=== PATIENT | male | born 1975 | race Two or more races ===

== ENCOUNTER → 2022-01-26 | Emergency (ER) | payer OTHER ==
[~2022-01-26] VITALS: Ht 180.3 cm; Wt 81.6 kg
[~2022-01-26] MED LIST: CEPH500C2 PO; IBUP-1955 PO; KETOROLAC TROMETHAMINE 15 MG/ML VIAL ONE; KETOROLAC TROMETHAMINE INJ 30 MG/ML VIAL IM ONE
--- NOTE | 2022-01-26 08:07 | NUR ---
[id number] C/O BLE CRAMPING AND PAIN 8/10 X1WK. VITALS ARE WITHIN NORMAL LIMITS. NO RESP DISTRESS.
[2022-01-26 10:31] VITALS: BP 108/67
--- NOTE | 2022-01-26 10:34 | NUR ---
Patient provided with bus pass. Patient discharged to home in stable condition. Written and verbal after care instructions given. Patient verbalizes understanding of instruction.
== END | disposition home or self-care (01) ==
LOC: ER 08:04
DX: L03.116 Cellulitis of left lower limb (principal); L03.115 Cellulitis of right lower limb; R60.9 Edema, unspecified; I10 Essential (primary) hypertension; Z59.00 Homelessness unspecified; Z79.899 Other long term (current) drug therapy
CPT/HCPCS: 93970; 96372; 99284; J1885

== ENCOUNTER 2022-02-04 19:51 | Emergency (ER) | payer OTHER ==
[~2022-02-04] VITALS: Ht 180.3 cm; Wt 81.6 kg
[~2022-02-04 19:51] MED LIST changes: -KETOROLAC TROMETHAMINE 15 MG/ML VIAL ONE; -KETOROLAC TROMETHAMINE INJ 30 MG/ML VIAL IM ONE
--- NOTE | 2022-02-04 22:31 | NUR ---
COVID ANTIGEN SWAB COLLECTED AND SENT TO LAB
[2022-02-04] MEDS ORDERED: OLANZAPINE 5 MG TABLET ONE (22:34)
[2022-02-04 22:47] LABS: BASOPHILS % (AUTO) 1.1 % (0.0-2.0); HEMATOCRIT 43 % (39-51); HEMOGLOBIN 14.6 g/dL (13.5-17.5); LYMPHOCYTES % (AUTO) 34.5 % (20.0-44.0); MEAN CORPUSCULAR HGB CONC 34 g/dl (31.0-36.0); MEAN CORPUSCULAR VOLUME 94 fL (80-96); NEUTROPHILS % (AUTO) 53.4 % (43.0-81.0); PLATELET COUNT (AUTO) 266 K/uL (150-450); RED BLOOD CELL COUNT(AUTO) 4.65 MIL/uL (4.5-6.0); WHITE BLOOD COUNT (AUTO) 12.7 K/uL (4.3-11.0)
[2022-02-04 22:48] LABS: BASOPHILS # (AUTO) 0.1 K/uL (0.0-0.2); LYMPHOCYTES # (AUTO) 4.4 K/uL (0.8-4.8); MONOCYTES # (AUTO) 1.3 K/uL (0.1-1.30); NEUTROPHILS # (AUTO) 6.8 K/uL (1.8-8.9)
[2022-02-04] MEDS ORDERED: OLANZAPINE 5 MG TABLET PO ONE (23:00)
[2022-02-04 23:11] LABS: ALANINE AMINOTRANSFERASE 88 U/L (12-78); ALBUMIN 4.1 g/dL (3.4-5.0); ALKALINE PHOSPHATASE 73 U/L (46-116); ASPARTATE AMINOTRANSFERASE 45 U/L (15-37); BILIRUBIN,DIRECT 0.2 mg/dL (0.0-0.2); BILIRUBIN,TOTAL 1.1 mg/dL (0.2-1.0); CALCIUM, SERUM 8.7 mg/dL (8.5-10.1); CARBON DIOXIDE 29 mmol/L (21-32); CHLORIDE 103 mmol/L (98-107); GLUCOSE 96 mg/dL (74-106); POTASSIUM 3.3 mmol/L (3.5-5.1); SODIUM SERUM 141 mmol/L (136-145); TOTAL PROTEIN, SERUM 7.9 g/dL (6.4-8.2); UREA NITROGEN, BLOOD 15 mg/dL (7-18)
[2022-02-04 23:15] LABS: ACETAMINOPHEN < 2 ug/ml (10-30); ALCOHOL, BLOOD < 3 mg/dL (0-0)
--- NOTE | 2022-02-04 23:34 | NUR ---
patient no longer wants to go voluntarily to a psych facility. denies s/i h/i. is discharged in stable condition.
[2022-02-04 23:36] VITALS: BP 123/70
== END 2022-02-04 23:36 | disposition home or self-care (01) ==
LOC: ER 19:55
DX: F29 Unspecified psychosis not due to a substance or known physiological condition (principal); Z59.01 Sheltered homelessness; F19.90 Other psychoactive substance use, unspecified, uncomplicated
CPT/HCPCS: 36415; 80048; 80076; 80143; 80320; 85025; 87426; 99283; C9803; G0480

== ENCOUNTER 2022-02-05 12:02 | Emergency (ER) | payer OTHER ==
[~2022-02-05] VITALS: Ht 180.3 cm; Wt 81.6 kg
--- NOTE | 2022-02-05 12:08 | NUR ---
BIBS C/O SI, -HI."CAN'T TELL MY PLAN OUT LOUD". ALSO WITH AUDITORY HALLUCINATIONS "HORRIBLE THINGS". ALSO C/O GEN BODY ACHES X3DAYS & AMALIA FOOT BLISTERS x FEW WEEKS. PATIENT REQUESTS VOLUNTARY ADMISSION TO PSYCH FACILITY. TO ER BED 18, CHANGED TO HOSP GOWN, BELONGINGS PLACED IN PATIENT LOCKER. CALLED SECURITY FOR WANDING. AWAITING MD CARLSON
[2022-02-05 12:42] LABS: BASOPHILS # (AUTO) 0.1 K/uL (0.0-0.2); BASOPHILS % (AUTO) 1.2 % (0.0-2.0); EOSINOPHILS % (AUTO) 2.6 % (0.0-6.0); HEMATOCRIT 48 % (39-51); HEMOGLOBIN 16.2 g/dL (13.5-17.5); LYMPHOCYTES # (AUTO) 3.4 K/uL (0.8-4.8); MEAN CORPUSCULAR HGB CONC 34 g/dl (31.0-36.0); MEAN CORPUSCULAR VOLUME 93 fL (80-96); MONOCYTES # (AUTO) 0.7 K/uL (0.1-1.30); MONOCYTES % (AUTO) 8.1 % (2.0-12.0); NEUTROPHILS # (AUTO) 3.8 K/uL (1.8-8.9); NEUTROPHILS % (AUTO) 46.1 % (43.0-81.0); PLATELET COUNT (AUTO) 266 K/uL (150-450); RED BLOOD CELL COUNT(AUTO) 5.09 MIL/uL (4.5-6.0); WHITE BLOOD COUNT (AUTO) 8.2 K/uL (4.3-11.0)
[2022-02-05 12:59] LABS: CALCIUM, SERUM 9.1 mg/dL (8.5-10.1); CARBON DIOXIDE 31 mmol/L (21-32); CHLORIDE 102 mmol/L (98-107); CREATININE 0.8 mg/dL (0.6-1.3); GLUCOSE 93 mg/dL (74-106); POTASSIUM 3.7 mmol/L (3.5-5.1); SODIUM SERUM 140 mmol/L (136-145); UREA NITROGEN, BLOOD 14 mg/dL (7-18)
--- NOTE | 2022-02-05 12:59 | NUR ---
FAXED CLINICALS TO [facility]
[2022-02-05 13:06] LABS: ALANINE AMINOTRANSFERASE 103 U/L (12-78); ALBUMIN 4.5 g/dL (3.4-5.0); ALCOHOL, BLOOD < 3 mg/dL (0-0); ALKALINE PHOSPHATASE 98 U/L (46-116); ASPARTATE AMINOTRANSFERASE 56 U/L (15-37); BILIRUBIN,DIRECT 0.2 mg/dL (0.0-0.2); BILIRUBIN,TOTAL 1.4 mg/dL (0.2-1.0); TOTAL PROTEIN, SERUM 8.8 g/dL (6.4-8.2)
--- NOTE | 2022-02-05 13:24 | NUR ---
SS Note: Pt. Is a 46-year-old male who demonstrates adequate insight to the reason for hospitalization. Per pt., he presents to the ER for suicidal ideation. Pt. was oriented x3, alert, and cooperative. During interview, pt. was capable of following directions and appeared unkempt. Pt.'s speech was at a low rate and pt.'s mood was elevated. Pt. reported no hx of mental health, substance abuse, denies homicidal ideation. Pt. denies visual hallucinations, paranoia, or delusions. Pt. stated that he experiences auditory hallucinations, the voices are telling him to hurt himself. SW explored pt.'s living situation. Per pt., he resides at [facility] [place]. He has been staying there for almost 2 weeks. Pt. stated that he has suicidal ideation but does not have a plan to hurt himself. Pt. has been to a psych hospital before but does not remember the last time or name of the hospital. Pt. expressed that he wants voluntary psych admission to [facility]. Plan: [facility] will follow-up with [facility] regarding pt.'s packet.
--- NOTE | 2022-02-05 14:32 | NUR ---
Followed-up with [facility], awaiting for feedback.
--- NOTE | 2022-02-05 21:09 | NUR ---
PATIENT A, OX4. REPORTED FEELING WELL. DENIED SI/HI AND STATED HE WANTS TO LEAVE. MD MADE AWARE. Patient discharged to home in stable condition. Written and verbal after care instructions given. Patient verbalizes understanding of instruction.
[2022-02-05 23:12] VITALS: BP 127/84
== END 2022-02-05 23:13 | disposition home or self-care (01) ==
LOC: ER 12:15
DX: R45.851 Suicidal ideations (principal); F15.10 Other stimulant abuse, uncomplicated; F41.9 Anxiety disorder, unspecified; F32.A Depression, unspecified; F17.200 Nicotine dependence, unspecified, uncomplicated; Z79.899 Other long term (current) drug therapy
CPT/HCPCS: 36415; 80048-TC; 80076-TC; 85025-TC; G0480

== ENCOUNTER 2024-04-15 15:53 | Emergency (ER) | payer OTHER ==
[~2024-04-15] VITALS: Ht 170.2 cm; Wt 73.5 kg
[2024-04-15 17:30] VITALS: BP 117/68; TEMP 99.1; O2SAT 100
== END 2024-04-15 17:48 | disposition left against medical advice (07) ==
LOC: ER 15:58
DX: R10.9 Unspecified abdominal pain (principal); Z53.21 Procedure and treatment not carried out due to patient leaving prior to being seen by health care provider

== ENCOUNTER 2024-10-25 01:44 | Emergency (ER) | payer OTHER ==
[~2024-10-25] VITALS: Ht 175.3 cm; Wt 79.4 kg
[2024-10-25 02:07] LABS: BASOPHILS # (AUTO) 0.1 K/uL (0.0-0.2); BASOPHILS % (AUTO) 1.1 % (0.0-2.0); EOSINOPHILS # (AUTO) 0.2 K/uL (0.0-0.7); HEMATOCRIT 37 % (39-51); HEMOGLOBIN 12.9 g/dL (13.5-17.5); LYMPHOCYTES # (AUTO) 3.1 K/uL (0.8-4.8); LYMPHOCYTES % (AUTO) 39.4 % (20.0-44.0); MEAN CORPUSCULAR HEMOGLOBIN 31 PG (26.0-33.0); MEAN CORPUSCULAR HGB CONC 35 g/dl (31.0-36.0); MEAN CORPUSCULAR VOLUME 89 fL (80-96); MONOCYTES # (AUTO) 0.4 K/uL (0.1-1.30); MONOCYTES % (AUTO) 4.8 % (2.0-12.0); NEUTROPHILS # (AUTO) 4.2 K/uL (1.8-8.9); NEUTROPHILS % (AUTO) 52.7 % (43.0-81.0); PLATELET COUNT (AUTO) 237 K/uL (150-450); RED BLOOD CELL COUNT(AUTO) 4.16 MIL/uL (4.5-6.0); RED CELL DISTRIBUTION WIDTH 13.8 % (11.5-15.0)
[2024-10-25 02:11] LABS: CALCIUM, SERUM 8.8 mg/dL (8.5-10.1); CARBON DIOXIDE 27 mmol/L (21-32); CHLORIDE 107 mmol/L (98-107); CREATININE 0.9 mg/dL (0.6-1.3); GLUCOSE 121 mg/dL (74-106); POTASSIUM 3.7 mmol/L (3.5-5.1); SODIUM SERUM 142 mmol/L (136-145); UREA NITROGEN, BLOOD 16 mg/dL (7-18)
[2024-10-25 02:17] LABS: ALANINE AMINOTRANSFERASE 69 U/L (12-78); ALBUMIN 3.9 g/dL (3.4-5.0); ALCOHOL, BLOOD < 3 mg/dL (0-10); ALKALINE PHOSPHATASE 106 U/L (46-116); ASPARTATE AMINOTRANSFERASE 37 U/L (15-37); BILIRUBIN,DIRECT 0.1 mg/dL (0.0-0.2); BILIRUBIN,TOTAL 0.4 mg/dL (0.2-1.0); TOTAL PROTEIN, SERUM 7.8 g/dL (6.4-8.2)
[2024-10-25] MEDS ORDERED: IBUPROFEN 600 MG TABLET ONE (02:17)
[2024-10-25] MEDS ORDERED: METHOCARBAMOL (500MG) 500 MG TABLET ONE (02:17)
[2024-10-25] MEDS ORDERED: ONDANSETRON 4 MG TAB.RAPDIS ONE (02:18)
[2024-10-25 02:19] LABS: ACETAMINOPHEN <10 ug/ml (10-30); SALICYLATE 1.2 mg/dL (2.8-20.0)
[2024-10-25] MEDS: IBUPROFEN 600 MG TABLET PO ONE (02:25)
[2024-10-25] MEDS: ONDANSETRON 4 MG TAB.RAPDIS SL ONE (02:25)
[2024-10-25] MEDS: METHOCARBAMOL (750MG) 750 MG TABLET PO STA (02:25)
[2024-10-25] MEDS ORDERED: KETOROLAC TROMETHAMINE INJ 30 MG/ML VIAL ONE (02:45)
[2024-10-25] MEDS: KETOROLAC TROMETHAMINE INJ 30 MG/ML VIAL IM ONE (02:48)
[2024-10-25 02:55] VITALS: TEMP 97.7
[2024-10-25] MEDS ORDERED: NALO4SPR BNOSTRILS (03:24)
[2024-10-25 05:38] VITALS: BP 118/80; O2SAT 98
== END 2024-10-25 05:39 | disposition home or self-care (01) ==
LOC: ER 01:54
DX: T40.2X1A Poisoning by other opioids, accidental (unintentional), initial encounter (principal); R11.0 Nausea; F17.200 Nicotine dependence, unspecified, uncomplicated; Y92.89 Other specified places as the place of occurrence of the external cause
CPT/HCPCS: 99283; 96372; 85025; 80048; 80076; 36415; 80143; 80320; J1885; Q0162; G0480